=== PATIENT | male | born 1960 | race African-American/Black ===

== ENCOUNTER 2017-08-11 20:18 | Emergency (ER) | payer OTHER ==
[2017-08-11 22:05] VITALS: BP 144/85
== END 2017-08-11 22:05 | disposition home or self-care (01) ==
LOC: ED 20:18
DX: S02.2XXA Fracture of nasal bones, initial encounter for closed fracture (principal); W51.XXXA Accidental striking against or bumped into by another person, initial encounter; Y93.67 Activity, basketball; Y99.8 Other external cause status; Y92.89 Other specified places as the place of occurrence of the external cause